=== PATIENT | male | born 1980 | race Caucasian/White ===

== ENCOUNTER 2020-12-11 16:05 | Emergency (ER) | payer OTHER ==
[~2020-12-11 16:05] MED LIST: MOTRIN600 MG PO
[2020-12-11 17:09] LABS: BASOPHIL 0.2 % (0-2); EOSINOPHIL 0.7 % (0-5); HCT 51.2 % (42.0-52.0); HGB 17.3 g/dl (13.2-18.0); LYMPHOCYTE 19.8 % (15-48); MCH 31.1 pg (25.0-31.0); MCHC 33.8 g/dL (32.0-36.0); MCV 91.9 fL (78.0-100.0); MONOCYTE 6.7 % (0-12); NEUTROPHIL 72.2 % (41-80); NRBC 0; PLT 232 K/uL (150-400); RBC 5.57 M/uL (4.70-6.00); RDW 12.5 % (11.5-14.0); WBC 5.7 K/uL (4.0-10.5)
[2020-12-11 17:20] LABS: ALBUMIN 4.8 g/dL (3.4-5.0); ALKALINE PHOSHATASE 97 U/L (46-116); ALT 39 U/L (16-63); AST 13 U/L (15-37); BILIRUBIN - TOTAL 0.6 mg/dL (0.2-1.0); BUN 18 mg/dL (7-18); CHLORIDE 103 mmol/L (98-107); CO2 (BICARBONATE) 31 mmol/L (21-32); CPK 78 U/L (39-308); GLOBULIN (CALCULATION) 3.5 g/dL; GLUCOSE 73 mg/dL (74-106); MAGNESIUM 2.1 mg/dL (1.8-2.4); POTASSIUM 4.1 mmol/L (3.5-5.1); TOTAL PROTEIN 8.3 g/dL (6.4-8.2)
[2020-12-11 20:13] LABS: AMPHETAMINES NEGATIVE (NEGATIVE); BARBITURATES NEGATIVE (NEGATIVE); ECSTASY (MDMA) NEGATIVE (NEGATIVE); MARIJUANA (THC) POSITIVE (NEGATIVE); METHADONE NEGATIVE (NEGATIVE); OPIATES NEGATIVE (NEGATIVE); OXYCODONE NEGATIVE (NEGATIVE)
== END 2020-12-11 20:59 | disposition home or self-care (01) ==
LOC: FER 16:05
PROVIDERS: Emergency Medicine
DX: R56.9 Unspecified convulsions (principal); R47.81 Slurred speech; J45.909 Unspecified asthma, uncomplicated; F17.210 Nicotine dependence, cigarettes, uncomplicated; Z88.1 Allergy status to other antibiotic agents; Z88.6 Allergy status to analgesic agent; Z88.8 Allergy status to other drugs, medicaments and biological substances
CPT/HCPCS: 36415; 80053; 80305; 82550; 83735; 85025; G0480; J2060; J7030

== ENCOUNTER 2022-02-12 07:25 | Emergency (ER) | payer OTHER ==
[2022-02-12 08:16] LABS: BASOPHIL 0.6 % (0-2); EOSINOPHIL 1.8 % (0-5); HCT 44.7 % (42.0-52.0); HGB 15.1 g/dl (13.2-18.0); LYMPHOCYTE 20.3 % (15-48); MCH 30.9 pg (25.0-31.0); MCHC 33.8 g/dL (32.0-36.0); MCV 91.6 fL (78.0-100.0); MONOCYTE 5.5 % (0-12); MPV 11.1 fL (6.0-9.5); NEUTROPHIL 71.2 % (41-80); NRBC 0; PLT 184 K/uL (150-400); RBC 4.88 M/uL (4.70-6.00); RDW 13.1 % (11.5-14.0); WBC 4.9 K/uL (4.0-10.5)
[2022-02-12 08:47] LABS: ALBUMIN 4.1 g/dL (3.4-5.0); BILIRUBIN - TOTAL 0.3 mg/dL (0.2-1.0); GLOBULIN (CALCULATION) 2.4 g/dL; TOTAL PROTEIN 6.5 g/dL (6.4-8.2)
[2022-02-12 08:57] LABS: LACTIC ACID 1.7 mmol/L (0.4-1.9)
[2022-02-12 10:31] LABS: BILIRUBIN NEGATIVE (NEGATIVE); BLOOD NEGATIVE Ery/uL (NEGATIVE); CLARITY CLEAR (CLEAR); COLOR YELLOW (YELLOW); GLUCOSE (U) NORMAL (NORMAL); LEUKOCYTES NEGATIVE Leu/uL (NEGATIVE); NITRITE NEGATIVE (NEGATIVE); PROTEIN NEGATIVE (NEGATIVE); UROBILINOGEN 0.2 mg/dL (0.2-1.0)
== END 2022-02-12 10:49 | disposition home or self-care (01) ==
LOC: FER 07:25
PROVIDERS: Emergency Medicine
DX: N40.0 Benign prostatic hyperplasia without lower urinary tract symptoms (principal); R10.9 Unspecified abdominal pain; R11.2 Nausea with vomiting, unspecified; R19.7 Diarrhea, unspecified; Z88.1 Allergy status to other antibiotic agents; Z88.8 Allergy status to other drugs, medicaments and biological substances
CPT/HCPCS: 36415; 80053; 81003; 82270; 83605; 83690; 85025; J2405; J7030

== ENCOUNTER 2022-03-04 10:15 | Emergency (ER) | payer OTHER ==
[~2022-03-04] VITALS: Ht 182.9 cm; Wt 68.0 kg
[2022-03-04] MEDS ORDERED: NORCO 5-325 TA1 EACH PO (11:13)
[2022-03-04] MEDS ORDERED: MEDROL 4MG DOSEP4 MG PO (11:13)
== END 2022-03-04 12:47 | disposition home or self-care (01) ==
LOC: FER 10:15
DX: S46.011A Strain of muscle(s) and tendon(s) of the rotator cuff of right shoulder, initial encounter (principal); S43.421A Sprain of right rotator cuff capsule, initial encounter; W18.2XXA Fall in (into) shower or empty bathtub, initial encounter; Y92.009 Unspecified place in unspecified non-institutional (private) residence as the place of occurrence of the external cause; Z28.310 Unvaccinated for COVID-19
CPT/HCPCS: 73030

== ENCOUNTER 2022-04-24 14:55 | Emergency (ER) | payer OTHER ==
[~2022-04-24] VITALS: Ht 182.9 cm; Wt 65.8 kg
[~2022-04-24 14:55] MED LIST changes: +MEDROL 4MG DOSEP4 MG PO; +NORCO 5-325 TA1 EACH PO
[2022-04-24 16:07] LABS: BASOPHIL 0.4 % (0-2); HCT 47.3 % (42.0-52.0); LYMPHOCYTE 23.1 % (15-48); MCH 30.8 pg (25.0-31.0); MCHC 33.8 g/dL (32.0-36.0); MCV 91.1 fL (78.0-100.0); MONOCYTE 6.7 % (0-12); NEUTROPHIL 67.4 % (41-80); NRBC 0; PLT 197 K/uL (150-400); RBC 5.19 M/uL (4.70-6.00); RDW 12.5 % (11.5-14.0)
[2022-04-24 16:23] LABS: BUN/CREAT RATIO (CALC) 14.7 RATIO; CREATININE 0.95 mg/dL (0.67-1.17); POTASSIUM 3.8 mmol/L (3.5-5.1)
[2022-04-24 16:35] LABS: BILIRUBIN NEGATIVE (NEGATIVE); BLOOD NEGATIVE Ery/uL (NEGATIVE); CLARITY CLEAR (CLEAR); COLOR YELLOW (YELLOW); GLUCOSE (U) NORMAL (NORMAL); LEUKOCYTES NEGATIVE Leu/uL (NEGATIVE); NITRITE NEGATIVE (NEGATIVE); PROTEIN NEGATIVE (NEGATIVE); SPECIFIC GRAVITY 1.025 (1.001-1.030); UROBILINOGEN 0.2 mg/dL (0.2-1.0)
[2022-04-24 16:41] LABS: AMPHETAMINES NEGATIVE (NEGATIVE); BARBITURATES NEGATIVE (NEGATIVE); ECSTASY (MDMA) NEGATIVE (NEGATIVE); MARIJUANA (THC) POSITIVE (NEGATIVE); METHADONE NEGATIVE (NEGATIVE); OPIATES NEGATIVE (NEGATIVE); OXYCODONE NEGATIVE (NEGATIVE)
== END 2022-04-24 18:33 | disposition home or self-care (01) ==
LOC: FER 14:55
PROVIDERS: Nurse Practitioner Family
DX: G40.909 Epilepsy, unspecified, not intractable, without status epilepticus (principal); F17.210 Nicotine dependence, cigarettes, uncomplicated; Z88.1 Allergy status to other antibiotic agents; Z88.6 Allergy status to analgesic agent; Z88.8 Allergy status to other drugs, medicaments and biological substances; Z28.310 Unvaccinated for COVID-19
CPT/HCPCS: 36415; 70450; 72125; 80048; 80305; 81003; 85025